=== PATIENT | male | born 1960 | race Caucasian/White ===

== ENCOUNTER 2021-04-17 09:31 | Emergency (ER) | payer SELFPAY ==
[~2021-04-17] VITALS: Ht 170.2 cm; Wt 68.0 kg
[2021-04-17 09:34] VITALS: BP 143/90
--- NOTE | 2021-04-17 11:43 | NUR ---
SS Consult: SS Consult requested for homeless discharge. The pt. is a 60-year-old Black male patient who presented to the ED with complaints of getting soap in his eye upon washing his clothes. Upon SS consult, the pt. is sleeping and rousable through verbal cues. The Alert & Oriented x 4 and kept eyes closed. The pt. appears unkempt, with clear speech. The pt. is irritable with dysphoric mood. SW explored pt.'s living situation. Per the pt., he has been experiencing homelessness "for a long time" and stays on [address] Pt. Pt. refused to continue with interview. Plan: Pt. stated he will return to living on [address]. Pt. refused to sign homeless waiver & it was placed in the pt.'s chart. SW provided homeless resources to pt. and he accepted them. Year-round shelters: [facility] [address] [phone] ; [facility] [address] [place] [address]; [facility] Johddse[address] [facility] [address] Winter Shelters: SPA 2 | [facility] Address: Confidential (call for location ) Population Served: Coed # of Beds: 57 SPA 4 | [facility] Provider: [facility] Last Address: [address] [place] [address], [address] # of Beds: 49 Population Served: Coed SPA 6 | [facility] Provider: Home at Last Address: [address] [address] # of Beds: 49 Population Served: A[facility]ond [facility] Provider: [place] [facility] [place] Address: [address] [facility] [address] # of Beds: 20 Population Served: Women [facility] Facility Provider: Home at Last Address: [address] [facility] [address] # of Beds: 30 Population Served: Women SPA 8 | [facility] Former [facility] Provider: Suzy Address: [address] [facility] [address] # of Beds: 65 Population Served: Coed Hygiene: [facility]: [address]. [place] ; [facility] [address] [facility] [place] ; [facility] [address]en [place] . Food Resources: [facility] at [facility]- [address] [place]; Meet Each Need with Dignity ([facility]) [address] [address] [place]; [facility] [address] [facility]; [facility] 7703 [facility] [place]. Mental Health resources provided: [facility] [address] [place], [place] [address] ; [facility] [place] [address] [facility] [address], [place], [place] [id number] ; Tamra Merritt [facility] [address] [place] [address] ; [facility] [address] [place], [place] [address] Healthcare Clinics: [facility] [address] [facility], [address] [place]. [place] ; [facility] [address] [place] [address]; [facility] [address] [facility]. [place] [phone] Counseling--Outpatient [facility] [address] [facility], [address] [place], [place] [address] (Specializes in in-depth psychotherapy for emotional distress: anxiety, depression, interpersonal conflicts, life transitions, childhood abuse) [facility] [address] [place] [address] (Assist with solving problem marital difficulties, separation & divorce, aging parents, & grief, chronic & terminal illness) [facility] [address] [place] [address] (Deal with loss & grief, anxiety, marital difficulties) Homebound/Mental Health Services [address] [facility], [address] [place], [place] [phone] (Provide in-home mental services to people who are incapable of leaving their homes) [facility] Senior Service/[facility] Center [address] [place] [address] [facility] [address] [place] [address] PSYCHIATRIC OUTPATIENT SERVICES [facility] Partial Hospitalization and Intensive Outpatient Program (Managed Care and [place] Only)[address] [facility] [facility] [phone] [facility] Partial Hospitalization and Outpatient Ruxykjy[address]18 [facility]. [address] [place], [place] [phone] [facility] [place] Few58786 [facility]. [address] [place], [place] [phone] [facility] Partial Hospitalization and Outpatient [id number] [place], [phone] Substance Abuse resources provided included: [facility] Substance Abuse Self-Helpline (SAS) ; [facility]LP [address] [facility]. [place] [address] ; [facility] [address] [facility] [address] ; [facility] [address] [place] [facility]ich[facility] [address] ; [facility] [address] [facility] [address] ; [facility] [address] [facility] [address] ; [facility] [address] [facility] [phone] ; [facility] Substance Abuse Helpline(SAS)-[facility] ; [facility] Family [facility] ; [facility] [place]; [facility]; [facility] [place]; [facility] Abran Goode; [facility] [place]; [place] [facility] [place]; [facility] [place]; [facility] [place]; Alcoholics Anonymous -SFV; Yd-Xeov-Tietcwm ; Marijuana Anonymous -SFV; Narcotics Anonymous www.na.org;
[2021-04-17] MEDS ORDERED: DEXT15DR6 EACHEYE (13:23)
--- NOTE | 2021-04-17 13:50 | NUR ---
Patient discharged to home in stable condition. Written and verbal after care instructions given. Patient verbalizes understanding of instruction.
== END 2021-04-17 13:51 | disposition home or self-care (01) ==
LOC: ER 09:34
DX: H10.213 Acute toxic conjunctivitis, bilateral (principal); Z59.00 Homelessness unspecified